=== PATIENT | male | born 1960 | race Caucasian/White ===

== ENCOUNTER 2020-10-06 08:00 | Day surgery (SDC) | payer MEDICARE ==
[~2020-10-06] VITALS: Ht 188 cm; Wt 80.7 kg
--- NOTE | 2020-10-06 17:09 | PCM.HP ---
HISTORY & PHYSICAL HISTORY & PHYSICAL DATE OF ADMISSION: October 06, 2020 CHIEF COMPLAINT: Chest pain on and off for 1 week HISTORY OF PRESENT ILLNESS: 60-year-old male with previous history of chronic back pain was apparently in his usual health until about a week prior to this admission, First time she noticed some chest discomfort after treadmill exercise and subsequently after exertion he developed chest pain and on Monday he had Chest pain that was radiating to the back and it was severe in nature therefore went to the nearest medical facility and underwent evaluation and found to have elevated troponin and patient was transferred to this facility today for further management patient claims he has about 2 out of 10 pain and mild headache no nausea or vomiting no dizziness no lightheadedness no palpitation and no numbness of fingers or arms ALLERGIES: No known drug allergies CURRENT MEDICATIONS: Lyrica 75 mg daily, Belbuca 300 mg twice daily PAST MEDICAL HISTORY: Spinal injury with chronic pain,Denies hypertension hypercholesterolemia diabetes mellitus or previous coronary artery disease SOCIAL HISTORY: Non-smoker no alcohol intake 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 FAMILY HISTORY: Father had late onset coronary artery disease and cerebrovascular accident REVIEW OF SYSTEMS: Slowly gaining weight normal appetite regular bowel movement nocturia x1-2 times effort angina for last few days about 1 week and no respiratory difficulties All systems reviewed and negative except mentioned above VITAL SIGNS: PHYSICAL EXAMINATION: Awake alert oriented not in acute distress HEENT anicteric sclera pupil round react light mucous membrane is moist neck supple no JVD no carotid bruit no thyromegaly Lungs clear to auscultation bilaterally no rales rhonchi or wheezes heard Heart S1-S2 heard no murmur gallop noted regular rate and rhythm Abdomen soft not distended nontender bowel sounds present no organomegaly or masses felt Extremities no edema no calf tenderness dorsalis pedis pulses present 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 Muscle power 5/5 in all 4 limbs LABORATORY DATA: Troponin from the previous medical facility shows downtrending the last 1 was reported as 3.[address]-T abnormalities on the inferior lead IMAGING: SUMMARY: 60-year-old male with previous history of chronic back pain presented to the local medical facility with chest pain found to have elevated troponin and acute myocardial infarction patient was transferred to this facility ASSESSMENT/PLAN: Acute myocardial infarction Chronic pain syndrome Plan: Discussed with director cloud transformation patient is to go to [facility] for further evaluation of coronary system and intervention as needed, will start patient on high intensity statin dual antiplatelet therapy and patient received Lovenox at the local facility today we will await director cloud transformation recommendation for further anticoagulant therapy. Labs in the morning BOBY VILLALBA MD Oct 06, 2020 17:09
--- NOTE | 2020-10-06 17:41 | PCM.EKG ---
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
[2020-10-06] MEDS ORDERED: HEPARIN SQ STA (17:50)
[2020-10-06] MEDS ORDERED: HEPARIN-D5W 20,000 UNIT/500 ML 500 ML IV SCH (18:00)
[2020-10-06] MEDS ORDERED: HEPARIN ONE (18:02)
[2020-10-06] MEDS ORDERED: HEPARIN IV STA (18:28)
[2020-10-06 18:30] LABS: CALCIUM 9.4 mg/dL (8.4-10.5); CARBON DIOXIDE 26.2 mmol/L (20.0-32)
[2020-10-06 18:30] LABS: BASOPHIL % 0.3 % (0.0-0.2); EOSINOPHIL # 0.2 10^3/uL (0.0-0.2); EOSINOPHIL % 2.5 % (0.0-5.0); LYMPHOCYTES # 1.77 10^3/uL1 (1.0-4.8); LYMPHOCYTES % 28.1 % (24.0-44.0); MEAN CORP HGB 31.2 pg (26-34); MONOCYTES # 0.7 10^3/uL (0.3-0.8); MONOCYTES % 10.8 % (5.0-12.0); NEUTROPHIL # 3.7 10^3/uL (1.8-7.7); NEUTROPHILS % 58.3 % (41.0-85.0); PLATELET COUNT 251 10^3/uL (150-400); RED CELL DISTRIBUTION WIDTH 12.7 % (11.5-14.5)
[2020-10-06] MEDS ORDERED: SUBLIMAZE ONE (20:22)
[2020-10-06] MEDS ORDERED: VERSED ONE (20:23)
[2020-10-06] MEDS ORDERED: XYLOCAINE ONE (20:35)
[2020-10-06] MEDS ORDERED: NS 1000ML 1,000 ML ONE (20:36)
[2020-10-06] MEDS ORDERED: LIPITOR PO SCH (21:00)
[2020-10-06 22:43] VITALS: BP 138/78
--- NOTE | 2020-10-06 23:11 | CCRH ---
DATE OF SERVICE: 10/06/2020 DICTATOR NAME: AMALIA ACEVEDO DO CARDIAC CATHETERIZATION REPORT INDICATIONS: Acute non-ST elevation myocardial infarction. HISTORY: This is a 60-year-old male who presented to the hospital with symptoms of chest discomfort with radiation to the back. Upon presentation, he was noted to have spill troponin and a diagnosis of acute non-ST elevation myocardial infarction was made. He was taken to the cardiac catheterization suite for urgent left heart catheterization. PROCEDURES PERFORMED: 1. Selective coronary angiography. 2. Left ventriculography. 3. Hemostasis established using a 6-Albanian Angio-Seal. DESCRIPTION OF PROCEDURE: Access was obtained using a 4-Albanian micropuncture kit to cannulate the right common femoral artery. A 4-Albanian sheath was then upsized to a 6-Albanian regular short sheath. Diagnostic angiography was then carried out using the Joe left catheter to engage the left main. The left main was noted to be angiographically normal. It trifurcates into left anterior descending artery, a ramus intermedius branch and a left circumflex artery. The left anterior descending artery is noted to have mild luminal irregularities. It runs in the interventricular groove to the apex to form a type 2 LAD. It gives off 3 diagonal branches that are noted to have mild luminal irregularities. The ramus intermedius branch is a medium sized caliber vessel with mild luminal irregularities. The left circumflex artery is noted to be codominant with mild luminal irregularities. It gives off 2 obtuse marginal branches that are noted to have mild luminal irregularities. The Joe left catheter was then exchanged for a Joe right catheter, which was used to cross the aortic valve into the left ventricle. Left ventriculography was performed. LVEF was noted to be 65%. LVEDP was noted to be full. Upon pullback of the Joe right catheter, there was no gradient across the aortic valve. Joe right catheter was then used to engage the Flory. Flory angiography showed a dominant Flory with a focal 30-40% mid Flory lesion. The remaining segments of the Flory were noted to have mild luminal irregularities. 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 The Flory bifurcates distally to an RoPDA and RoPL branch. Both branches are noted to have mild luminal irregularities. The Joe right catheter was then taken out and hemostasis was established using a 6-Albanian Angio-Seal. The patient left the lab assistant in stable condition. There were no complications. IMPRESSION: 1. Coronary vasospasm. 2. Nonobstructive coronary artery disease. 3. Selective coronary angiography. 4. Left ventriculography. 5. Left ventricular ejection fraction of 65%. 6. Left ventricular end-diastolic pressure of 4. 7. Hemostasis established using a 6-Albanian Angio-Seal. RECOMMENDATIONS: No coronary intervention is necessary at this time. Elevated troponins likely secondary to coronary vasospasm. He will be started on Norvasc 10 mg p.o. daily. Low dose statin therapy will also be initiated. A 2D echo will be obtained on this admission. He will be kept overnight for anticipated discharge in the morning. Ginger SIMON D.O. DR: RUFINA RAMIRES: [id number] RECEIPT: [id number]
[2020-10-07] MEDS ORDERED: TYLENOL PO PRN (01:30)
[2020-10-07] MEDS ORDERED: MORPHINE SULFATE IV PRN (01:30)
[2020-10-07 01:31] VITALS: BP 112/69
[2020-10-07 04:00] VITALS: BP 112/65
--- NOTE | 2020-10-07 05:44 | CNH ---
DATE OF CONSULTATION: 10/06/2020 DICTATOR NAME: AMALIA ACEVEDO DO REASON FOR CONSULTATION: Acute non-ST elevation myocardial infarction. HISTORY OF PRESENT ILLNESS: This is a 60-year-old male who was transferred out to [facility] from [facility] after having presented with symptoms of chest discomfort that started 3 days ago and progressively gotten worse. He describes chest pain in the substernal region and appears to be exertional in nature. He admits to radiation to the back, but denies any shortness of breath, palpitations or diaphoresis. Upon presentation to the hospital, initial troponin was noted to be 3.06. EKG shows normal sinus rhythm with no evidence of myocardial ischemia. A consultation has been placed to Cardiology service for evaluation. PAST MEDICAL HISTORY: Significant for chronic back pain. PAST SURGICAL HISTORY: He denies any surgeries. ALLERGIES: He has no known drug allergies. MEDICATIONS: He takes at home, Lyrica and Belbuca. SOCIAL HISTORY: Denies tobacco use, denies alcohol use, denies illicit drug use. FAMILY HISTORY: He admits to family history of premature coronary artery disease, but denies sudden cardiac . REVIEW OF SYSTEMS: As per HPI and as per transfer of records, all systems are reviewed and negative for interval change. PHYSICAL EXAMINATION: VITAL SIGNS: Blood pressure is 135/82, respiratory rate is 16, heart rate is 82. GENERAL: He is in no apparent distress, alert and oriented x3. HEENT: Normocephalic, atraumatic. Extraocular muscles intact. Pupils equally round, reactive to light and accommodation. CARDIAC: S1, S2. No gallops, murmurs, rubs, or clicks. LUNGS: Clear to auscultation bilaterally. No wheezing, rhonchi or rales. ABDOMEN: Soft, nontender, nondistended. Positive bowel sounds in all four quadrants. EXTREMITIES: No cyanosis, no clubbing, no edema, +2 pedal pulses palpable bilaterally. NEUROLOGIC: No neurological deficits. Sensation is intact. IMPRESSION: 1. Acute non-ST elevation myocardial infarction. 2. Chronic back pain. 3. Family history of premature coronary artery disease. RECOMMENDATIONS: This is a 60-year-old male who was brought in to the hospital with symptoms of chest pain, which he has been experiencing for the last few days that progressively got worse. He admits to exertional component. Upon presentation, EKG shows normal sinus rhythm with no evidence of myocardial ischemia. Troponin was noted to be elevated at 3.06. He will be taken to the cardiac catheterization suite for urgent left heart catheterization. The risks versus benefits of the procedure have been explained to him in great detail. He verbalized understanding and is agreeable with the plan of care. Informed consents have been obtained. A 2D echo will be obtained this admission to evaluate his left ventricular ejection fraction and structural integrity of his heart. Further recommendations will be made after the left heart catheterization. Ginger SIMON D.O. DR: MIRIAN TID: [id number] RECEIPT: [id number]
[2020-10-07 07:59] VITALS: BP 115/75
[2020-10-07] MEDS ORDERED: PLAVIX PO SCH (09:00)
[2020-10-07] MEDS ORDERED: ASPIRIN EC PO SCH (09:00)
[2020-10-07] MEDS ORDERED: NORVASC PO SCH (09:00)
--- NOTE | 2020-10-07 09:11 | PRM.PN ---
Subjective Subjective Date: Oct 07, 2020 Time: 09:10 Subjective Patient examined at bedside no current chest pain VTE VTE Risk Total Score: 2 VTE Risk Score VTE Risk: Score 0-1 = Low Risk (Aggressive mobilization; early ambulation; no VTE prophylaxis required) Score 2: Moderate Risk (Intermittent/Pneumatic Compression Device OR Lovenox/Heparin/Coumadin) Score 3-4: High Risk (Intermittent/Pneumatic Compression Device AND Lovenox/Heparin/Coumadin) Score > or =5: Highest Risk (Intermittent/Pneumatic Compression Device AND Lovenox/Heparin/Coumadin) Review of Systems Allergies: Coded Allergies: No Known Allergies (Unverified , 10/06/20) Scheduled Amlodipine Besylate (Norvasc), 10 MG PO DAILY24 Atorvastatin 10MG (Lipitor 10MG), 1 TAB PO DAILY Objective Vitals and I/O Vital Sign - Last 24 Hours 10/07/20 10/07/20 07:59 09:05 Temp 97.7 Pulse 64 64 Resp 16 B/P (MAP) 115/75 (88) 115/75 Pulse Ox 97 All Results(Lab/Rad) Laboratory Tests Test 10/06/20 17:07 10/06/20 18:25 Sodium Level 139 mmol/L Potassium Level 3.9 mmol/L Chloride Level 102.0 mmol/L Carbon Dioxide Level 26.2 mmol/L Anion Gap 14.7 Blood Urea Nitrogen 13 mg/dL Creatinine 0.75 mg/dL Estimated GFR () 128.1 Est GFR (CKD-EPI)(Non-Afr Haitian) 105.9 BUN/Creatinine Ratio 17.0 Glucose Level 86 mg/dL Calcium Level 9.4 mg/dL Total Bilirubin 1.4 mg/dL Aspartate Amino Transf (AST/SGOT) 33 U/L Alanine Aminotransferase (ALT/SGPT) 28 U/L Alkaline Phosphatase 57 U/L Troponin I 3.06 ng/mL Total Protein 7.3 g/dL Albumin 3.9 g/dL Globulin 3.4 Albumin/Globulin Ratio 1.147 White Blood Count 6.3 10^3/uL Red Blood Count 4.45 10^6/uL Hemoglobin 13.9 g/dL Hematocrit 41.9 % Mean Corpuscular Volume 94.2 fL Mean Corpuscular Hemoglobin 31.2 pg Mean Corpuscular Hemoglobin Concent 33.2 g/dL Red Cell Distribution Width 12.7 % Platelet Count 251 10^3/uL Mean Platelet Volume 9.2 fL Neutrophils (%) (Auto) 58.3 % Lymphocytes (%) (Auto) 28.1 % Monocytes (%) (Auto) 10.8 % Neutrophils # (Auto) 3.7 10^3/uL Lymphocytes # (Auto) 1.77 10^3/uL1 Monocytes # (Auto) 0.7 10^3/uL Absolute Immature Granulocyte (auto 0 10^3 u/L Absolute Eosinophils (auto) 0.2 10^3/uL Immature Granulocytes % 0.00 % Eosinophils % 2.5 % Basophils % 0.3 % Basophils # 0.0 10^3/uL Prothrombin Time 10.8 SEC Prothrombin Time INR (Non-Therap) 1.0 Activated Partial Thromboplast Time 21.5 SEC Current Medications Medications (Trade) Dose Ordered Sig/Alessandra Route PRN Reason Start Time Stop Time Status Last Admin Dose Admin Atorvastatin Calcium (Lipitor) 40 mg HS PO 10/06/20 21:00 10/06/20 22:00 DC Aspirin (Aspirin Ec) 81 mg DAILY PO 10/07/20 09:00 11/06/20 08:59 10/07/20 09:05 Clopidogrel Bisulfate (Plavix) 75 mg DAILY PO 10/07/20 09:00 10/06/20 22:00 DC Enoxaparin Sodium (Lovenox) 40 mg Q24HRS SQ 10/07/20 17:30 10/06/20 20:40 DC Heparin Sodium (Porcine) (Heparin) 5,000 unit STAT STAT SQ 10/06/20 17:50 10/06/20 18:33 DC Heparin Sodium/ Dextrose 500 ml @ 0 mls/hr TITRATE IV 10/06/20 18:00 10/06/20 22:00 DC 10/06/20 18:06 Heparin Sodium (Porcine) (Heparin) 5,000 unit STAT STAT IV 10/06/20 18:28 10/06/20 20:40 DC 10/06/20 18:28 Heparin Sodium (Porcine) (Heparin) 5,000 unit STK-MED ONCE .ROUTE 10/06/20 18:02 10/06/20 18:33 DC Heparin Sodium/ Sodium Chloride 1,500 ml @ ud STK-MED ONCE IV 10/06/20 20:22 10/06/20 20:22 DC Fentanyl Citrate (Sublimaze) 50 mcg STK-MED ONCE .ROUTE 10/06/20 20:22 10/06/20 20:23 DC Lidocaine HCl (Xylocaine) 20 mg STK-MED ONCE .ROUTE 10/06/20 20:35 10/06/20 20:35 DC Sodium Chloride 1,000 ml @ ud STK-MED ONCE .ROUTE 10/06/20 20:36 10/06/20 20:37 DC Amlodipine Besylate (Norvasc) 10 mg DAILY PO 10/07/20 09:00 11/06/20 08:59 10/07/20 09:05 Atorvastatin Calcium (Lipitor) 20 mg HS PO 10/07/20 21:00 11/06/20 20:59 Acetaminophen (Tylenol) 650 mg Q6 PRN PO PAIN 1 - 3 10/07/20 01:30 11/06/20 01:29 10/07/20 01:57 Morphine Sulfate (Morphine Sulfate) 2 mg Q6 PRN IV PAIN 4 - 10 10/07/20 01:30 11/06/20 01:29 Course Vitals & review Data Vital Sign - Last 24 Hours 10/07/20 10/07/20 07:59 09:05 Temp 97.7 Pulse 64 64 Resp 16 B/P (MAP) 115/75 (88) 115/75 Pulse Ox 97 Laboratory Tests Test 10/06/20 17:07 10/06/20 18:25 Sodium Level 139 mmol/L Potassium Level 3.9 mmol/L Chloride Level 102.0 mmol/L Carbon Dioxide Level 26.2 mmol/L Anion Gap 14.7 Blood Urea Nitrogen 13 mg/dL Creatinine 0.75 mg/dL Estimated GFR () 128.1 Est GFR (CKD-EPI)(Non-Afr Haitian) 105.9 BUN/Creatinine Ratio 17.0 Glucose Level 86 mg/dL Calcium Level 9.4 mg/dL Total Bilirubin 1.4 mg/dL Aspartate Amino Transf (AST/SGOT) 33 U/L Alanine Aminotransferase (ALT/SGPT) 28 U/L Alkaline Phosphatase 57 U/L Troponin I 3.06 ng/mL Total Protein 7.3 g/dL Albumin 3.9 g/dL Globulin 3.4 Albumin/Globulin Ratio 1.147 White Blood Count 6.3 10^3/uL Red Blood Count 4.45 10^6/uL Hemoglobin 13.9 g/dL Hematocrit 41.9 % Mean Corpuscular Volume 94.2 fL Mean Corpuscular Hemoglobin 31.2 pg Mean Corpuscular Hemoglobin Concent 33.2 g/dL Red Cell Distribution Width 12.7 % Platelet Count 251 10^3/uL Mean Platelet Volume 9.2 fL Neutrophils (%) (Auto) 58.3 % Lymphocytes (%) (Auto) 28.1 % Monocytes (%) (Auto) 10.8 % Neutrophils # (Auto) 3.7 10^3/uL Lymphocytes # (Auto) 1.77 10^3/uL1 Monocytes # (Auto) 0.7 10^3/uL Absolute Immature Granulocyte (auto 0 10^3 u/L Absolute Eosinophils (auto) 0.2 10^3/uL Immature Granulocytes % 0.00 % Eosinophils % 2.5 % Basophils % 0.3 % Basophils # 0.0 10^3/uL Prothrombin Time 10.8 SEC Prothrombin Time INR (Non-Therap) 1.0 Activated Partial Thromboplast Time 21.5 SEC Current Medications Medications (Trade) Dose Ordered Sig/Alessandra PRN Reason Start Time Stop Time Status Last Admin Acetaminophen (Tylenol) 650 mg Q6 PRN PAIN 1 - 3 10/07/20 01:30 11/06/20 01:29 10/07/20 01:57 Amlodipine Besylate (Norvasc) 10 mg DAILY 10/07/20 09:00 11/06/20 08:59 10/07/20 09:05 Aspirin (Aspirin Ec) 81 mg DAILY 10/07/20 09:00 11/06/20 08:59 10/07/20 09:05 Atorvastatin Calcium (Lipitor) 20 mg HS 10/07/20 21:00 11/06/20 20:59 Morphine Sulfate (Morphine Sulfate) 2 mg Q6 PRN PAIN 4 - 10 10/07/20 01:30 11/06/20 01:29 O2 Sat by Pulse Oximetry: 97 Assessment/Plan Assessment/Plan Assessment/Plan 60-year-old male with previous history of chronic back pain presented to the local medical facility with chest pain found to have elevated troponin and acute myocardial infarction patient was transferred to this facility ASSESSMENT/PLAN: Acute myocardial infarction Chronic pain syndrome Plan: Discussed with exercise physiologist certified patient is to go to [facility] for further evaluation of coronary system and intervention as needed, will start patient on high intensity statin dual antiplatelet therapy and patient received Lovenox at the local facility today we will await exercise physiologist certified recommendation for further anticoagulant therapy. Labs in the morning Cardiology Recommendations: IMPRESSION: 1. Coronary vasospasm. 2. Nonobstructive coronary artery disease. 3. Selective coronary angiography. 4. Left ventriculography. 5. Left ventricular ejection fraction of 65%. 6. Left ventricular end-diastolic pressure of 4. 7. Hemostasis established using a 6-Mohawk Angio-Seal. RECOMMENDATIONS: No coronary intervention is necessary at this time. Elevated troponins likely secondary to coronary vasospasm. He will be started on Norvasc 10 mg p.o. daily. Low dose statin therapy will also be initiated. A 2D echo will be obtained on this admission. He will be kept overnight for anticipated discharge in the morning. AJAY CARDENAS MD Oct 07, 2020 09:11
--- NOTE | 2020-10-07 09:23 | PRM.DC ---
Discharge Summary Date of Discharge: Oct 07, 2020 Time of Request to Discharge: 09:22 Hospital Course 60-year-old male with previous history of chronic back pain was appa rently in his usual health until about a week prior to this admission, First time se noticed some chest discomfort after treadmill exercise and subsequently after exertion he developed chest pain and on Monday he had Chest pain that was radiating to the back and it was severe in nature therefore went to the nearest medical facility and underwent evaluation and found to have elevated troponin and patient was transferred to this facility today for further management patient claims he has about 2 out of 10 pain and mild headache no nausea or vomiting no dizziness no lightheadedness no palpitation and no numbness of fingers or arms ALLERGIES: No known drug allergies CURRENT MEDICATIONS: Lyrica 75 mg daily, Belbuca 300 mg twice daily PAST MEDICAL HISTORY: Spinal injury with chronic pain,Denies hypertension hypercholesterolemia diabetes mellitus or previous coronary artery disease SOCIAL HISTORY: Non-smoker no alcohol intake 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 FAMILY HISTORY: Father had late onset coronary artery disease and cerebrovascular accident REVIEW OF SYSTEMS: Slowly gaining weight normal appetite regular bowel movement nocturia x1-2 times effort angina for last few days about 1 week and no respiratory difficulties All systems reviewed and negative except mentioned above Patient was evaluated by cardiology please see consult note for further details and cleared for discharge with close outpatient cardiology follow-up General: Alert, Oriented X3 HEENT: Atraumatic, PERRLA, EOMI Lungs: Clear to auscultation Heart: Regular rate Abdomen: Normal bowel sounds Extremities: No clubbing Skin: No rashes Neuro: Normal speech Psych/Mental Status: Mood NL Scheduled Amlodipine Besylate (Norvasc), 10 MG PO DAILY24 Atorvastatin 10MG (Lipitor 10MG), 1 TAB PO DAILY Sepsis Evaluation @ Discharge Vital Sign - Last 24 Hours 10/07/20 10/07/20 07:59 09:05 Temp 97.7 Pulse 64 64 Resp 16 B/P (MAP) 115/75 (88) 115/75 Pulse Ox 97 Laboratory Tests Test 10/06/20 17:07 10/06/20 18:25 Sodium Level 139 mmol/L Potassium Level 3.9 mmol/L Chloride Level 102.0 mmol/L Carbon Dioxide Level 26.2 mmol/L Anion Gap 14.7 Blood Urea Nitrogen 13 mg/dL Creatinine 0.75 mg/dL Estimated GFR () 128.1 Est GFR (CKD-EPI)(Non-Afr [place]) 105.9 BUN/Creatinine Ratio 17.0 Glucose Level 86 mg/dL Calcium Level 9.4 mg/dL Total Bilirubin 1.4 mg/dL Aspartate Amino Transf (AST/SGOT) 33 U/L Alanine Aminotransferase (ALT/SGPT) 28 U/L Alkaline Phosphatase 57 U/L Troponin I 3.06 ng/mL Total Protein 7.3 g/dL Albumin 3.9 g/dL Globulin 3.4 Albumin/Globulin Ratio 1.147 White Blood Count 6.3 10^3/uL Red Blood Count 4.45 10^6/uL Hemoglobin 13.9 g/dL Hematocrit 41.9 % Mean Corpuscular Volume 94.2 fL Mean Corpuscular Hemoglobin 31.2 pg Mean Corpuscular Hemoglobin Concent 33.2 g/dL Red Cell Distribution Width 12.7 % Platelet Count 251 10^3/uL Mean Platelet Volume 9.2 fL Neutrophils (%) (Auto) 58.3 % Lymphocytes (%) (Auto) 28.1 % Monocytes (%) (Auto) 10.8 % Neutrophils # (Auto) 3.7 10^3/uL Lymphocytes # (Auto) 1.77 10^3/uL1 Monocytes # (Auto) 0.7 10^3/uL Absolute Immature Granulocyte (auto 0 10^3 u/L Absolute Eosinophils (auto) 0.2 10^3/uL Immature Granulocytes % 0.00 % Eosinophils % 2.5 % Basophils % 0.3 % Basophils # 0.0 10^3/uL Prothrombin Time 10.8 SEC Prothrombin Time INR (Non-Therap) 1.0 Activated Partial Thromboplast Time 21.5 SEC Current Medications Medications (Trade) Dose Ordered Sig/Alessandra PRN Reason Start Time Stop Time Status Last Admin Acetaminophen (Tylenol) 650 mg Q6 PRN PAIN 1 - 3 10/07/20 01:30 11/06/20 01:29 10/07/20 01:57 Amlodipine Besylate (Norvasc) 10 mg DAILY 10/07/20 09:00 11/06/20 08:59 10/07/20 09:05 Aspirin (Aspirin Ec) 81 mg DAILY 10/07/20 09:00 11/06/20 08:59 10/07/20 09:05 Atorvastatin Calcium (Lipitor) 20 mg HS 10/07/20 21:00 11/06/20 20:59 Morphine Sulfate (Morphine Sulfate) 2 mg Q6 PRN PAIN 4 - 10 10/07/20 01:30 11/06/20 01:29 Course Vitals & review Data Vital Sign - Last 24 Hours 10/07/20 10/07/20 07:59 09:05 Temp 97.7 Pulse 64 64 Resp 16 B/P (MAP) 115/75 (88) 115/75 Pulse Ox 97 Laboratory Tests Test 10/06/20 17:07 10/06/20 18:25 Sodium Level 139 mmol/L Potassium Level 3.9 mmol/L Chloride Level 102.0 mmol/L Carbon Dioxide Level 26.2 mmol/L Anion Gap 14.7 Blood Urea Nitrogen 13 mg/dL Creatinine 0.75 mg/dL Estimated GFR () 128.1 Est GFR (CKD-EPI)(Non-Afr [place] Irish) 105.9 BUN/Creatinine Ratio 17.0 Glucose Level 86 mg/dL Calcium Level 9.4 mg/dL Total Bilirubin 1.4 mg/dL Aspartate Amino Transf (AST/SGOT) 33 U/L Alanine Aminotransferase (ALT/SGPT) 28 U/L Alkaline Phosphatase 57 U/L Troponin I 3.06 ng/mL Total Protein 7.3 g/dL Albumin 3.9 g/dL Globulin 3.4 Albumin/Globulin Ratio 1.147 White Blood Count 6.3 10^3/uL Red Blood Count 4.45 10^6/uL Hemoglobin 13.9 g/dL Hematocrit 41.9 % Mean Corpuscular Volume 94.2 fL Mean Corpuscular Hemoglobin 31.2 pg Mean Corpuscular Hemoglobin Concent 33.2 g/dL Red Cell Distribution Width 12.7 % Platelet Count 251 10^3/uL Mean Platelet Volume 9.2 fL Neutrophils (%) (Auto) 58.3 % Lymphocytes (%) (Auto) 28.1 % Monocytes (%) (Auto) 10.8 % Neutrophils # (Auto) 3.7 10^3/uL Lymphocytes # (Auto) 1.77 10^3/uL1 Monocytes # (Auto) 0.7 10^3/uL Absolute Immature Granulocyte (auto 0 10^3 u/L Absolute Eosinophils (auto) 0.2 10^3/uL Immature Granulocytes % 0.00 % Eosinophils % 2.5 % Basophils % 0.3 % Basophils # 0.0 10^3/uL Prothrombin Time 10.8 SEC Prothrombin Time INR (Non-Therap) 1.0 Activated Partial Thromboplast Time 21.5 SEC Current Medications Medications (Trade) Dose Ordered Sig/Alessandra PRN Reason Start Time Stop Time Status Last Admin Acetaminophen (Tylenol) 650 mg Q6 PRN PAIN 1 - 3 10/07/20 01:30 11/06/20 01:29 10/07/20 01:57 Amlodipine Besylate (Norvasc) 10 mg DAILY 10/07/20 09:00 11/06/20 08:59 10/07/20 09:05 Aspirin (Aspirin Ec) 81 mg DAILY 10/07/20 09:00 11/06/20 08:59 10/07/20 09:05 Atorvastatin Calcium (Lipitor) 20 mg HS 10/07/20 21:00 11/06/20 20:59 Morphine Sulfate (Morphine Sulfate) 2 mg Q6 PRN PAIN 4 - 10 10/07/20 01:30 11/06/20 01:29 O2 Sat by Pulse Oximetry: 97 Plan Assessment 60-year-old male with previous history of chronic back pain presented to the local medical facility with chest pain found to have elevated troponin and acute myocardial infarction patient was transferred to this facility ASSESSMENT/PLAN: Acute myocardial infarction Chronic pain syndrome Plan: Discussed with award clerk patient is to go to [facility] for further evaluation of coronary system and intervention as needed, will start patient on high intensity statin dual antiplatelet therapy and patient received Lovenox at the local facility today we will await award clerk recommendation for further anticoagulant therapy. Labs in the morning Cardiology Recommendations: IMPRESSION: 1. Coronary vasospasm. 2. Nonobstructive coronary artery disease. 3. Selective coronary angiography. 4. Left ventriculography. 5. Left ventricular ejection fraction of 65%. 6. Left ventricular end-diastolic pressure of 4. 7. Hemostasis established using a 6-[place]izen [place] Angio-Seal. RECOMMENDATIONS: No coronary intervention is necessary at this time. Elevated troponins likely secondary to coronary vasospasm. He will be started on Norvasc 10 mg p.o. daily. Low dose statin therapy will also be initiated. A 2D echo will be obtained on this admission. He will be kept overnight for anticipated discharge in the morning. AJAY CARDENAS MD Oct 07, 2020 09:23
[2020-10-07] MEDS ORDERED: ATOR10TA PO (09:25)
[2020-10-07] MEDS ORDERED: AMLO10TA4 PO (09:25)
--- NOTE | 2020-10-07 09:59 | PRM.PN ---
Subjective Subjective Date: Oct 07, 2020 Time: 09:15 Subjective Patient resting comfortably in bed. Denies any chest pain, shortness of breath or palpitations. Review of Systems Constitutional: No: Fever, Chills, Sweats Eyes: No: Pain, Vision change, Conjunctivae inflammation ENT: No: Ear discharge, Nose discharge Respiratory: No: Cough, Shortness of breath, SOB with excertion Cardiovascular: No: Chest Pain, Palpitations, Orthopnea, Edema Gastrointestinal: No: Nausea, Abdominal Pain Genitourinary: No Frequency Musculoskeletal: back pain (chronic); No: arm pain Neurological: No: Weakness, Numbness Allergies: Coded Allergies: No Known Allergies (Unverified , 10/06/20) Scheduled Amlodipine Besylate (Norvasc), 10 MG PO DAILY24 Atorvastatin 10MG (Lipitor 10MG), 1 TAB PO DAILY Objective Vitals and I/O Vital Sign - Last 24 Hours 10/06/20 10/06/20 10/07/20 10/07/20 18:21 22:43 01:31 03:58 Temp 99.1 98.6 Pulse 68 83 Resp 18 18 B/P (MAP) 138/78 (98) 112/69 (83) Pulse Ox 97 92 O2 Delivery Room Air Room Air 10/07/20 10/07/20 10/07/20 04:00 07:59 09:05 Temp 98.1 97.7 Pulse 78 64 64 Resp 18 16 B/P (MAP) 112/65 (81) 115/75 (88) 115/75 Pulse Ox 95 97 Intake and Output 10/07/20 07:00 Output Total 450 ml Balance -450 ml General: Alert, Oriented X3, Cooperative HEENT: Atraumatic, PERRLA, EOMI Lungs: Clear to auscultation, Normal air movement Heart: Regular rate, Normal S1, Normal S2 Abdomen: Normal bowel sounds, Soft Extremities: No clubbing, No edema, Normal pulses Neuro: Normal speech, Strength at 5/5 X4 ext Psych/Mental Status: Mental status NL, Mood NL All Results(Lab/Rad) Laboratory Tests Test 10/06/20 17:07 10/06/20 18:25 Sodium Level 139 mmol/L Potassium Level 3.9 mmol/L Chloride Level 102.0 mmol/L Carbon Dioxide Level 26.2 mmol/L Anion Gap 14.7 Blood Urea Nitrogen 13 mg/dL Creatinine 0.75 mg/dL Estimated GFR () 128.1 Est GFR (CKD-EPI)(Non-Afr [place]e) 105.9 BUN/Creatinine Ratio 17.0 Glucose Level 86 mg/dL Calcium Level 9.4 mg/dL Total Bilirubin 1.4 mg/dL Aspartate Amino Transf (AST/SGOT) 33 U/L Alanine Aminotransferase (ALT/SGPT) 28 U/L Alkaline Phosphatase 57 U/L Troponin I 3.06 ng/mL Total Protein 7.3 g/dL Albumin 3.9 g/dL Globulin 3.4 Albumin/Globulin Ratio 1.147 White Blood Count 6.3 10^3/uL Red Blood Count 4.45 10^6/uL Hemoglobin 13.9 g/dL Hematocrit 41.9 % Mean Corpuscular Volume 94.2 fL Mean Corpuscular Hemoglobin 31.2 pg Mean Corpuscular Hemoglobin Concent 33.2 g/dL Red Cell Distribution Width 12.7 % Platelet Count 251 10^3/uL Mean Platelet Volume 9.2 fL Neutrophils (%) (Auto) 58.3 % Lymphocytes (%) (Auto) 28.1 % Monocytes (%) (Auto) 10.8 % Neutrophils # (Auto) 3.7 10^3/uL Lymphocytes # (Auto) 1.77 10^3/uL1 Monocytes # (Auto) 0.7 10^3/uL Absolute Immature Granulocyte (auto 0 10^3 u/L Absolute Eosinophils (auto) 0.2 10^3/uL Immature Granulocytes % 0.00 % Eosinophils % 2.5 % Basophils % 0.3 % Basophils # 0.0 10^3/uL Prothrombin Time 10.8 SEC Prothrombin Time INR (Non-Therap) 1.0 Activated Partial Thromboplast Time 21.5 SEC Current Medications Medications (Trade) Dose Ordered Sig/Alessandra Route PRN Reason Start Time Stop Time Status Last Admin Dose Admin Atorvastatin Calcium (Lipitor) 40 mg HS PO 10/06/20 21:00 10/06/20 22:00 DC Aspirin (Aspirin Ec) 81 mg DAILY PO 10/07/20 09:00 11/06/20 08:59 10/07/20 09:05 Clopidogrel Bisulfate (Plavix) 75 mg DAILY PO 10/07/20 09:00 10/06/20 22:00 DC Enoxaparin Sodium (Lovenox) 40 mg Q24HRS SQ 10/07/20 17:30 10/06/20 20:40 DC Heparin Sodium (Porcine) (Heparin) 5,000 unit STAT STAT SQ 10/06/20 17:50 10/06/20 18:33 DC Heparin Sodium/ Dextrose 500 ml @ 0 mls/hr TITRATE IV 10/06/20 18:00 10/06/20 22:00 DC 10/06/20 18:06 Heparin Sodium (Porcine) (Heparin) 5,000 unit STAT STAT IV 10/06/20 18:28 10/06/20 20:40 DC 10/06/20 18:28 Heparin Sodium (Porcine) (Heparin) 5,000 unit STK-MED ONCE .ROUTE 10/06/20 18:02 10/06/20 18:33 DC Heparin Sodium/ Sodium Chloride 1,500 ml @ ud STK-MED ONCE IV 10/06/20 20:22 10/06/20 20:22 DC Fentanyl Citrate (Sublimaze) 50 mcg STK-MED ONCE .ROUTE 10/06/20 20:22 10/06/20 20:23 DC Lidocaine HCl (Xylocaine) 20 mg STK-MED ONCE .ROUTE 10/06/20 20:35 10/06/20 20:35 DC Sodium Chloride 1,000 ml @ ud STK-MED ONCE .ROUTE 10/06/20 20:36 10/06/20 20:37 DC Amlodipine Besylate (Norvasc) 10 mg DAILY PO 10/07/20 09:00 11/06/20 08:59 10/07/20 09:05 Atorvastatin Calcium (Lipitor) 20 mg HS PO 10/07/20 21:00 11/06/20 20:59 Acetaminophen (Tylenol) 650 mg Q6 PRN PO PAIN 1 - 3 10/07/20 01:30 11/06/20 01:29 10/07/20 01:57 Morphine Sulfate (Morphine Sulfate) 2 mg Q6 PRN IV PAIN 4 - 10 10/07/20 01:30 11/06/20 01:29 Assessment/Plan Assessment/Plan Assessment/Plan 1. Acute non-ST elevation myocardial infarction. 2. Chronic back pain. 3. Family history of premature coronary artery disease. 4. 2D echocardiogram done this admission showed LVEF of 60 to 65% 5. Moderate mitral regurgitation 6. Mild aortic regurgitation 7. Mild to moderate tricuspid regurgitation Left heart catheterization revealed 1. Coronary vasospasm. 2. Nonobstructive coronary artery disease. 3. Selective coronary angiography. 4. Left ventriculography. 5. Left ventricular ejection fraction of 65%. 6. Left ventricular end-diastolic pressure of 4. 7. Hemostasis established using a 6-[place] Angio-Seal. Plan Dr. Acevedo: Non-obstructive CAD No coronary intervention is necessary at this time. Elevated troponins secondary to coronary vasospasm. He will be sent home on Norvasc 10 mg p.o. daily and Lipitor 20 mg daily. He has been instructed to follow up with a local quenching car operator in his hometown as he does not live in [place] and is not interested in driving here for appointments. Cardiology will sign off at this time. Duration Duration or Time Spent with Pa: 25 COLLETTE HARRIS APRN, NP Oct 07, 2020 09:59 AMALIA ACEVEDO DO Oct 07, 2020 12:52
[2020-10-07 11:30] VITALS: BP 114/78
[2020-10-07 12:18] VITALS: BP 114/78
--- NOTE | 2020-10-07 13:00 | NUR ---
D/C D/C INSTRUCTIONS REVIEWED WITH PT ON POST HEART CATH ON S/S OF BLEEDING, S/S OF INFECTION, WHEN TO RETURN TO THE ER, FOLLOWING UP WITH [facility] [employer], FOLLOWING UP WITH PCP, CARDIAC DIET, REMOVING DRSG IN 24 HOURS, NO POOLS, BATHS, OR HOT TUBS, AND NO LIFTING ANYTHING GREATER THAN [address] LBS UNTIL CLEARED BY DR. VERBALIZED AND WRITTEN UNDERSTANDING OBTAINED. IV D/C'D PER ASEPTIC TECHNIQUE, NO S/S OF INFECTION NOTED TO SITE. PT OFF OF UNIT VIA W/C TO GO HOME IN PRIVATE VEHICLE. RELINQUISHED CARE OF PT
[2020-10-07] MEDS ORDERED: LOVENOX SQ SCH (17:30)
[2020-10-07] MEDS ORDERED: LIPITOR PO SCH (21:00)
== END 2020-10-07 09:21 | disposition home or self-care (01) ==
LOC: SDC 08:00 → MS 16:20 → UNDOADMIN 16:20 → SDC 10-07 09:21 → UNDODISIN 10-07 13:00 → EDSTATUS 10-08 08:28
PROVIDERS: ATTEND Family Medicine
DX: I21.4 Non-ST elevation (NSTEMI) myocardial infarction (principal); I25.111 Atherosclerotic heart disease of native coronary artery with angina pectoris with documented spasm; G89.4 Chronic pain syndrome; I08.3 Combined rheumatic disorders of mitral, aortic and tricuspid valves; Z83.3 Family history of diabetes mellitus; Z82.49 Family history of ischemic heart disease and other diseases of the circulatory system; Z79.899 Other long term (current) drug therapy; Z79.82 Long term (current) use of aspirin
CPT/HCPCS: 36415; 80053; 84484; 85025; 85610; 85730; 93005; 93306; 93458; 99152; 99153; C1760; C1769; C1894; G0378; J1644; J2001; J2250; J3010; J3490; J7030; Q9967